=== PATIENT | male | born 1950 | race Caucasian/White ===

== ENCOUNTER 2023-04-17 11:56 | Observation (INO) ==
[~2023-04-17 11:56] MED LIST: Buffered Lidocaine 1% SYRIN 1 ml INTRADERM ONE; Lactated Ringers 1000 ml BAG 1,000 ML IV SCH
[2023-04-17] MEDS ORDERED: Propofol 10 MG/ML 20 ML BTL ONE ×4 (12:03→16:27)
[2023-04-17] MEDS ORDERED: Midazolam 2 mg/2 ml VIAL 1 mg/ml 2 ml VIAL (2 mg) ONE (12:03)
[2023-04-17] MEDS ORDERED: fentaNYL 100 mcg/2 ml 50 MCG/ML VIAL ONE (12:03)
[2023-04-17] MEDS ORDERED: ceFAZolin 2 GM PREMIX 2 GM/50 ML BAG ONE (12:20)
[2023-04-17 12:43] LABS: Rapid COVID-19 Molecular Undetected (Undetected)
[2023-04-17] MEDS ORDERED: ROPIVACAINE 5 MG/ML 30 ML BTL (0.5%) ONE ×2 (13:33→13:54)
[2023-04-17] MEDS ORDERED: Ketamine HCL 50 mg/ml 10 ml VIAL (500 MG) ONE (15:58)
[2023-04-17] MEDS ORDERED: Magnesium Hydroxide LIQ 30 ML UDC PO PRN (16:45)
[2023-04-17] MEDS ORDERED: Lactulose 30 ml UDC PO PRN (16:45)
[2023-04-17] MEDS ORDERED: Ondansetron 4 mg VIAL 2 MG/ML 2 ml VIAL IV PRN ×2 (16:45→17:30)
[2023-04-17] MEDS ORDERED: Ondansetron ODT 4 mg TAB 4 MG TAB PO PRN (16:45)
[2023-04-17] MEDS ORDERED: Lactated Ringers 1000 ml BAG 1,000 ML IV SCH (17:00)
[2023-04-17] MEDS ORDERED: HYDROmorphone 1 MG/1 ML SYRINGE IV PRN (17:30)
[2023-04-17] MEDS ORDERED: Acetaminophen IV 1 GM/100ML 1,000 MG/100 ML BAG IV PRN (17:30)
[2023-04-17] MEDS ORDERED: fentaNYL 100 mcg/2 ml 50 MCG/ML VIAL IV PRN (17:30)
[2023-04-17] MEDS ORDERED: Naloxone 0.4 mg VIAL 0.4 mg/ml 1 ml VIAL IV PRN (17:30)
[2023-04-17] MEDS ORDERED: Albuterol HFA INHALER 8 gm MDI INH PRN (18:09)
[2023-04-17] MEDS: Morphine ER 100 mg TAB **extended release PO SCH (21:04)
[2023-04-17] MEDS: Magnesium Hydroxide LIQ 30 ML UDC PO SCH (21:20)
[2023-04-17] MEDS ORDERED: Morphine 2 MG/ML SYRINGE IV PRN (22:27)
[2023-04-17] MEDS: ceFAZolin 1 GM ADVAN 1 GM in NS 0.9% 50 ML 50 ML IVPB SCH (23:43)
[2023-04-18 06:13] LABS: Hematocrit 39.2 % (38-53); Hemoglobin 13.3 g/dL (13.2-16.3); Mean Platelet Volume 7.3 fL (7.5-11.2); Platelet Count 210 10^3/uL (150-450)
[2023-04-18 06:30] LABS: Calcium 8.7 mg/dL (8.6-10.3); Creatinine, Serum 0.65 mg/dL (0.67-1.17); Potassium 3.9 mmol/L (3.5-5.0); eGFR CKD-EPI 99.5 (>60)
[2023-04-18] MEDS: ceFAZolin 1 GM ADVAN 1 GM in NS 0.9% 50 ML 50 ML IVPB SCH ×2 (06:50→15:01)
[2023-04-18] MEDS ORDERED: Pancrelipase 5,000 units CAP PO SCH (08:00)
[2023-04-18] MEDS ORDERED: Vitamin THERAPEUTIC TAB PO SCH (09:00)
[2023-04-18] MEDS ORDERED: Aspirin EC 81 mg TAB.EC (enteric coated) PO SCH (09:00)
[2023-04-18] MEDS: Morphine ER 100 mg TAB **extended release PO SCH (09:43)
[2023-04-18] MEDS: Magnesium Hydroxide LIQ 30 ML UDC PO SCH (12:10)
[2023-04-18 14:22] VITALS: BP 125/80
== END 2023-04-18 16:20 | disposition home or self-care (01) ==
LOC: OR 11:56 → SSU 11:56
PROVIDERS: ADMIT Orthopaedic Surgery Adult Reconstructive Orthopaedic Surgery; ATTEND Orthopaedic Surgery Adult Reconstructive Orthopaedic Surgery